=== PATIENT | female | born 1965 | race Caucasian/White ===

== ENCOUNTER 2017-01-12 12:00 | Day surgery (SDC) | payer MEDICARE, MEDICAID ==
[~2017-01-12] VITALS: Ht 154.9 cm; Wt 54.0 kg
--- NOTE | 2017-01-12 07:54 | PCM.HPANE ---
Patient Data Surgeon Admitting Provider: Attending Provider:Leia Raza MD Primary Care Physician:Lucio Chapin MD Other Provider:Haydee Vegaingham Anesthesia Reason for Visit Colon Cancer Screening, Hep B Virus Ht/WT & BMI Body Mass Index Allergies Coded Allergies: No Known Allergies (Verified , 01/10/17) Past Anesthesia History Anesthesia History: Denies:: Abnormal Airway, Anesthesia Reactions, Difficult Intubation, Fam Anesthesia Reaction, Fam Malignant Hypertherm, Malignant Hyperthermia Medications Reported Medications Tramadol 50 Mg [id number] Mg PO Q6H PRN For Pain Ref 0 01/12/17 Beclomethasone Dipropionate (Qvar)8.7 Gm Aer.w.adap1 Puff INHALATION BID #8.7 GM 01/10/17 Albuterol Sulfate (Proventil HFA Inhaler)6.7 Gm Hfa.aer.ad1 Puff INH Q4 PRN For Shortness of Breath #1 INHALER Ref 0 01/10/17 Prednisone (PredniSONE)10 Mg Zdzano37 Mg PO DAILY Ref 0 01/10/17 Piroxicam 20 Mg Yfzrnrp64 Mg PO 01/10/17 Omeprazole 40 Mg Capsule.dr40 Mg PO DAILY Ref 0 01/10/17 Leflunomide 20 Mg Qylblj56 Mg PO 01/10/17 Adalimumab (Humira)40 Mg/0.8 Ml Pen.ij.kit40 Mg SQ 01/10/17 Gabapentin 800 Mg Ulzves562 Mg PO DAILY Ref 0 01/10/17 Fluticasone Propionate (Fluticasone Propionate Nasal)16 Gm [place].susp2 [place] NS BID #16 GM Ref 0 01/10/17 Discontinued Reported Medications Benzonatate 200 Mg Motzdxo734 Mg PO 01/10/17 [Folic Acid] No Conflict Check Ref 0 10/06/08 [Nortriptyline] No Conflict Ivksv79-33 Mg PO HS Ref 0 10/06/08 [Gabapentin] No Conflict Jvqfw661 Mg PO Ref 0 10/06/08 Hydrocod/APAP-Expunged, Do Not Renew! (Hydrocod/APAP 7.5/325-Expunged, Do Not Renew!)1 Tab Tablet1 Tab PO TID Ref 0 09/22/08 Methotrexate Sodium (Methotrexate)25 Mg/Ml Vial0.6 Ml IJ QW Ref 0 09/22/08 [embrel] No Conflict Check50 Mg SUBQ QW Ref 0 09/22/08 History History of ENT Problems?: No HEENT History: Denies:: Abnormal Airway Cataracts Difficult Intubation Dysphagia Glaucoma Hearing Problem Sinus Problem TMJ Denture Type: Full- Upper Full- Lower Teeth Condition: Inflamed Gums Missing Teeth Hx of Heart Problems?: No Cardiovascular History: Denies:: AICD Abdominal Aortic Aneurism Atrial Fibrillation Cardiac Surgery Chest Pain Congestive Heart Failure Coronary Artery Disease Edema Heart Murmur Hypertension Irregular Heartbeat Pacemaker Peripheral Vascular Rheumatic Fever Thrombophlebitis Valvular Heart Disease Hx of Respiratory Problem?: No Respiratory History: Denies:: Asthma COPD Chest Surgery Cough Dyspnea Emphysema Hemoptysis Oxygen Administration Pneumonia Pulmonary Embolism Tuberculosis Use of C-PAP Machine Use of Inhalers / NEBS Hx Neurologic Problems?: No Neurological History: Denies:: Alzheimer's Disease CVA Dementia Dizziness Headaches Multiple Sclerosis Parkinson's Disease Peripheral Neuropathy Seizures TIA Hx of GI Problems?: Yes Gastrointestinal History: Positive for:: Diverticulitis Gall Bladder Disease Gastroesphageal Reflux Gastrointestinal Bleeding Heartburn Hepatitis Hiatal Hernia Liver Disease Rectal Bleeding Denies:: Cirrhosis Hx of Problems?: No Hx Musculoskeletal Problems?: No Hx of Psycho/Social Problems?: No Hx Surgeries?: No Hx Any Other Health Problems?: No Hx Diabetes: No Hx Alcohol Use: Yes Stop/Bang Risk Assessment Category Category 1A: Patient has history of documented sleep apnea, and HAS NOT received any narcotic, sedative or anesthesia administration during this stay. Category 1B: Patient has history of documented sleep apnea, and HAS received any narcotic , sedative or anesthesia administration during this stay Category 2: Patient has SUSPECTED Obstructive Sleep Apnea, and HAS received any narcotic , sedative or anesthesia administration during this stay. Category 3: Patient has SUSPECTED Obstructive Sleep Apnea and HAS NOT received narcotic, sedative or anesthesia administration during this stay. Category 4: Outpatient in Procedural Areas with known sleep apnea or who screen positive for High Risk via the STOP/BANG questionnaire. Exam Exam General Appearance: Alert, Oriented X3, Severe Distress HEENT/AIRWAY: MP 2 Lungs: Clear to Auscultation Heart: Exam Unremarkable Plan Impression Patient chart reviewed, patient interviewed and anesthestic plan with risks, benefits, and alternatives discussed, and informed consent obtained. ASA Physical Status: ASA2 Mod Systemic Disease Anesthetic Plan: MAC Bene/Risks/Altern/Consents: Yes HP Complete Prior to Induction: Yes Oren Beal MD Jan 12, 2017 07:54
[~2017-01-12 12:00] MED LIST: ADAL40PE SQ; ALBU6.7H INH; BECL8.7A6 INHALATION; BENZ200C44 PO; FLUT16SP NS; FOLIC ACID; GABA800T2 PO; GABAPENTIN PO; HYDR1TAB92 PO; LEFL20TA18 PO; Lactated Ringer's 1,000 ML IV ONE; METH25VI IJ; NORTRIPTYLINE PO; OMEP40CA36 PO; PIRO20CA2 PO; PRE10 PO; embrel SUBQ
[2017-01-12] MEDS ORDERED: fentaNYL-PF 50 mCg/mL 2 mL Inj ONE (12:01)
[2017-01-12] MEDS ORDERED: Propofol 10,000 mCg/mL 20 mL Inj ONE (12:01)
[2017-01-12 12:25] VITALS: BP 123/88; PULSE 99; RESP 14; O2SAT 97
[2017-01-12] MEDS ORDERED: TRAM50TA2 PO (12:28)
[2017-01-12] MEDS ORDERED: Lactated Ringer's 1,000 ML IV SCH (12:51)
[2017-01-12] MEDS ORDERED: MetoCLOpramide 5 mg/mL 2 mL Inj IVPUSH PRN (12:55)
[2017-01-12] MEDS ORDERED: Ondansetron 2 mg/mL 2 mL Inj IVPUSH PRN (12:55)
[2017-01-12 13:39] VITALS: BP 102/62; PULSE 79; RESP 12; O2SAT 98
[2017-01-12 13:53] VITALS: BP 115/69; PULSE 66; RESP 12; O2SAT 100
[2017-01-12 13:57] VITALS: BP 114/84; PULSE 78; RESP 12; O2SAT 98
--- NOTE | 2017-01-12 13:58 | ENDO ---
[address] [address] ENDOSCOPY PROCEDURE PATIENT: YANET ZIMMERMAN : 1965 MR#: [id number] ADMIT: 01/12/2017 JOB ID: [id number] DATE: 01/12/2017 PROCEDURE PERFORMED: Esophagogastroduodenoscopy. INDICATION: Patient with chronic hepatitis B. Esophagogastroduodenoscopy is being performed to screen for varices. Patient's ASA classification, Mallampati score, and medications as per Dr. Oren Beal' anesthesia report. INSTRUMENT USED: [id number]-[id number]. PROCEDURE DETAILS: After informed consent was obtained, the patient was brought to the GI suite, where she was placed on oxygen via nasal cannula and monitored with continuous pulse oximeter, telemetry, and blood pressure monitoring. A time-out was performed. Then, she was placed in a left lateral decubitus position and medications were administered for sedation. A bite block was placed. The standard EGD scope was inserted through the bite block and advanced under direct visualization to the second portion of duodenum without difficulty. FINDINGS: 1. Normal appearing duodenal bulb, first and second portion. 2. Normal-appearing pylorus, antrum, and gastric body. 3. Retroflexed views in the gastric body revealed a normal-appearing cardia and fundus. 4. Normal-appearing GE junction with a regular Z-line at 41 cm. 5. Normal-appearing esophagus. IMPRESSION: Normal esophagogastroduodenoscopy exam to second portion of duodenum. RECOMMENDATIONS: Proceed to colonoscopy. COMPLICATIONS: None. ESTIMATED BLOOD LOSS: Zero. PROCEDURE PERFORMED: Colonoscopy. INDICATION: Colon cancer screening. Please see above for ASA classification, Mallampati score, and medications. INSTRUMENT USED: [id number] PREPARATION QUALITY: Good. PROCEDURE DETAILS: After completion of the EGD exam, the patient was turned and then a digital rectal exam was performed which was unremarkable. The colonoscope was then inserted into the rectum and advanced under direct visualization to the cecum, which was identified by the presence of the ileocecal valve and appendiceal orifice. Once the cecum was reached, the colonoscope was withdrawn back into the rectum as the mucosa and lumen were examined. In the rectum, retroflexion was performed. Following retroflexion, remaining air in the rectum was suctioned. Procedure was completed. FINDINGS: 1. In the ascending colon, there was a pedunculated lipoma that measured approximately 7-8 mm. The lipoma was probed and elicited a pillow sign. 2. Scattered diverticula were seen throughout the left side of the colon. IMPRESSION: 1. Ascending colon lipoma. 2. Left-sided diverticulosis. RECOMMENDATIONS: Repeat colonoscopy in 10 years, sooner if symptoms should dictate. COMPLICATIONS: None. ESTIMATED BLOOD LOSS: Zero.
--- NOTE | 2017-01-12 14:54 | PCM.ANEP1 ---
Post Anesthesia PACU Phase 1 Assessment Vital Signs Vital Signs Date Time Temp Pulse Resp B/P Pulse Ox O2 Delivery O2 Flow Rate FiO2 01/12/17 13:57 78 12 114/84 98 Room Air 01/12/17 13:53 66 12 115/69 100 Room Air 01/12/17 13:39 79 12 102/62 98 Room Air 01/12/17 12:25 36.7 99 14 123/88 97 Room Air Anesthetic Administered: GA Level of Alertness: Awake, talking MONTERROSO's with Equal Strength: Yes Pain: No Nausea or Vomiting: No CV Function & Hydration Stable: Yes Airway Device: Lungs: Clear to Auscultation PACU Phase 2 Assessment Complications: No Follow up Care: No Patient Instructions Provided: N/A Oren Beal MD Jan 12, 2017 14:54
== END 2017-01-12 23:59 | disposition home or self-care (01) ==
LOC: END 12:00
PROVIDERS: ATTEND Internal Medicine Gastroenterology
DX: Z12.11 Encounter for screening for malignant neoplasm of colon (principal); K57.30 Diverticulosis of large intestine without perforation or abscess without bleeding; D17.79 Benign lipomatous neoplasm of other sites; B19.10 Unspecified viral hepatitis B without hepatic coma; M06.9 Rheumatoid arthritis, unspecified; J45.909 Unspecified asthma, uncomplicated; K21.9 Gastro-esophageal reflux disease without esophagitis; G89.29 Other chronic pain; M79.7 Fibromyalgia; F17.210 Nicotine dependence, cigarettes, uncomplicated; Z90.710 Acquired absence of both cervix and uterus; Z96.651 Presence of right artificial knee joint
CPT/HCPCS: 43235; G0121; J2250; J2704; J3010; J7120